=== PATIENT | female | born 1955 | race Caucasian/White ===

== ENCOUNTER → 2017-10-13 14:57 | Outpatient (CLI) | payer OTHER, SELFPAY ==
[2017-10-13 15:49] LABS: Uric Acid 6.3 mg/dL (2.5-6.2)
[2017-10-13 15:53] LABS: Rheumatoid Factor 18.1 IU/mL (<12.0)
[2017-10-13 18:23] LABS: Erythrocyte Sedimentation Rate 6 MM/HR (0-20)
[2017-10-16 17:24] LABS: ANA Screen, IFA Negative (Negative)
== END ==
PROVIDERS: Visit Provider Orthopaedic Surgery
DX: M17.11 Unilateral primary osteoarthritis, right knee (principal)
CPT/HCPCS: 36415; 84550; 85651; 86038; 86430

== ENCOUNTER → 2017-10-19 16:52 | Outpatient (CLI) | payer OTHER, SELFPAY ==
--- NOTE | 2017-10-19 | DI.MRI.S_ITS ---
PROCEDURE: MR KNEE RT WO CON INDICATIONS: PAIN IN RIGHT KNEE TECHNIQUE: Noncontrast sagittal PD fast spin echo and T2 fast spin echo with fat saturation, sagittal 3-D FLASH with fat saturation; coronal T1 spin echo and PD fast spin echo with fat saturation, and axial PD fast spin echo with fat saturation through the knee. COMPARISON: [facility] Outside Film, MR, MR KNEE RT WO CON, 09/06/2016, 12:37. [facility] [place], CR, XR KNEE ARTHRITIC SERIES RT, 10/13/2017, 13:50. FINDINGS: Image quality: Excellent. Menisci: Lateral meniscus demonstrates a discoid configuration, without tear. Linear high signal intensity vertically traverses the posterior horn medial meniscus, demonstrating superior and inferior articular surface extension, indicating radial tearing. There is amorphous signal intensity within the anterior horn medial meniscus, demonstrating superior articular surface extension, indicating degenerative tearing. Cruciate ligaments: The anterior and posterior cruciate ligaments appear intact. Medial structures: The medial collateral ligament appears intact. The posterior oblique ligament, semimembranosus tendon insertions, oblique popliteal ligament, and meniscocapsular junction appear intact. Visualized portions of the pes anserinus tendons appear normal. No abnormal bursal fluid. Lateral structures: The lateral collateral ligament, long and short heads of the biceps femoris tendon appear intact. The popliteus tendon appears normal; the popliteofibular ligament appears intact. The posterosuperior and anteroinferior popliteomeniscal fascicles appear intact. The arcuate and fabellofibular ligaments appear intact, on either side of the lateral inferior geniculate artery. Iliotibial band appears normal. Anterior structures: The quadriceps and patellar tendons appear intact. Patellar alignment is normal. No femoral trochlear dysplasia or ventral trochlear prominence. No edema in the infrapatellar fat pad. Bones and cartilage: No bone marrow contusions or fractures. Intraosseous ganglia within the medial tibial plateau are present, with moderate surrounding ill-defined degenerative marrow edema, which is increased. Articular cartilage fibrillation overlies the lateral patellar facet and medial patellar facet. Severe diffuse articular cartilage loss overlies the weightbearing aspects of the medial femoral condyle and medial tibial plateau, as before. There is a high-grade 4 mm diameter region of articular cartilage loss overlying the mid weightbearing aspect of the lateral femoral condyle. Joint space: There is a small knee joint effusion. There is an intra-articular loose body within the posterior central aspect of the knee joint measuring 9 mm. There is a 6 mm diameter intra-articular loose body within the posterior lateral aspect of the knee joint. No Apodaca's cyst. Normal appearing synovial plicae are incidentally noted. IMPRESSION: 1. Progressive tearing of the medial meniscus. 2. Discoid lateral meniscus without tear. 3. Medial and patellofemoral compartment articular cartilage loss. 4. Knee joint effusion and intra-articular loose bodies. Dictated by: Kam Vasquez M.D. on 10/20/2017 at 13:03 Approved by: Kam Vasquez M.D. on 10/20/2017 at 13:07
== END ==
PROVIDERS: PCP Physician Assistant Medical; Visit Provider Orthopaedic Surgery
DX: M25.561 Pain in right knee (principal); S83.241A Other tear of medial meniscus, current injury, right knee, initial encounter; M25.461 Effusion, right knee; M23.41 Loose body in knee, right knee
CPT/HCPCS: 73721

== ENCOUNTER → 2017-11-03 09:11 | Outpatient (CLI) | payer OTHER, SELFPAY ==
[2017-11-03 09:28] LABS: Bacteria Urine None Seen
[2017-11-03 10:00] LABS: BUN Creatinine Ratio 25.7 (6-22); Blood Urea Nitrogen 18 mg/dL (7-17); Calcium 9.6 mg/dL (8.4-10.2); Carbon Dioxide 30 mmol/L (22-32); Chloride 105 mmol/L (98-107); Estimated Glomerular Filt Rate > 60.0 mL/min (>60); Glucose 109 mg/dL (80-110); HEMOLYSIS < 15 (0-50); Potassium 4.3 mmol/L (3.4-5.1); Sodium 145 mmol/L (137-145)
[2017-11-03 10:05] LABS: Hemoglobin A1C% w Est Avg Glu 5.9 % (4.0-6.0)
[2017-11-03 10:26] LABS: Add Manual Diff / Slide Review NO; Basophils Percent Auto 0.6 % (0-2); Eosinophils Percent Auto 3.8 % (2-4); Hematocrit 44.8 % (36-46); Hemoglobin 15.1 g/dL (12.0-16.0); Lymphocytes Percent Auto 35.3 % (25-40); Mean Corpuscular HGB Conc 33.6 % (30-36); Mean Corpuscular Hemoglobin 29.9 PG (26-34); Mean Corpuscular Volume 88.9 fL (80-100); Neutrophils Absolute Auto 4000 /uL (3000-5900); Neutrophils Percent Auto 52.3 % (50-75); Platelet Count 255 X10^3/uL (150-400); Red Blood Cell Count 5.04 X10^6/uL (4.0-5.2); White Blood Cell Count 7.6 X10^3/uL (4.5-11.0)
[2017-11-03 10:35] LABS: Appearance Urine UA CLEAR; Bilirubin Urine UA NEGATIVE (NEGATIVE); Color Urine UA YELLOW; Glucose Urine UA NEGATIVE (Normal); Ketones Urine UA NEGATIVE (NEGATIVE); Leukocyte Esterase Urine UA NEGATIVE (NEGATIVE); Nitrite Urine UA Negative (Negative); Occult Blood Urine UA NEGATIVE (Negative); Protein Urine UA NEGATIVE (Negative); Urobilinogen Urine UA 0.2 E.U./dL (0.2)
[2017-11-03 10:44] LABS: Culture Indicated Urine Cult Not Indicated; RBC Urine 0-1/HPF (0-5/HPF); Squamous Epithelial Cell Urine 0-1 /HPF; WBC Urine 0-1/HPF (0-5/HPF)
== END ==
PROVIDERS: PCP Physician Assistant Medical; Visit Provider Orthopaedic Surgery
DX: Z01.818 Encounter for other preprocedural examination (principal); Z01.812 Encounter for preprocedural laboratory examination; N39.9 Disorder of urinary system, unspecified; R73.09 Other abnormal glucose
CPT/HCPCS: 36415; 80048; 81001; 83036; 85025; 93005; 93010